=== PATIENT | female | born 1995 | race Two or more races ===

== ENCOUNTER → 2024-10-31 | Outpatient (CLI) | payer BC, SELFPAY ==
--- NOTE | 2024-10-31 09:30 | XR_ITS ---
Examination: Breast ultrasound, unilateral, left complete Date and time of exam: October 31, 2024 0954 hours INDICATIONS: Onset palpable lump left inner upper breast note is beginning a few months ago, family history breast cancer Technique: Real-time galeana scale ultrasonographic imaging performed left breast including all 4 quadrants as well as nipple retroareolar and axillary region. Findings: 10:00 oval mass hyperechoic, likely lipoma, 2 x 1 x 2.3 cm IMPRESSION: BI-RADS Category 3: Probably benign findings One additional 6 month left breast sonogram follow-up is needed to document stability of 10:00 nodule described above
--- NOTE | 2024-10-31 09:36 | XR_ITS ---
Examination: Diagnostic digital mammography, bilateral Computer aided detection 3-D breast Tomosynthesis, bilateral Date and time of exam: October 31, 2024 0939 hours INDICATIONS: Patient states left breast lump 11:00 position note is beginning 2 months ago Technique: Nonmagnified MLO, CC views of the breasts to been obtained, reconstructed from 3-D Tomosynthesis images. R2 computer aided detection program utilized for evaluation of suspicious masses and/or abnormal calcifications. 3-D Tomosynthesis images obtained. Findings: Scattered areas of fibroglandular density Spot compression views at the palpable site do not demonstrate suspicious mass Left breast sonogram report today demonstrates lipomatous mass 10:00 position left breast Impression: BI-RADS Category 2: Benign findings Left breast sonogram report today indicates 10:00 oval mass likely benign lipoma, recommend 6 month follow-up left breast sonography
== END | disposition home or self-care (01) ==
PROVIDERS: PCP Nurse Practitioner Family; Referring Provider Dental Hygienist; Visit Provider Dental Hygienist
DX: R92.323 Mammographic fibroglandular density, bilateral breasts (principal); N63.22 Unspecified lump in the left breast, upper inner quadrant
CPT/HCPCS: 76641; 77062; 77066; G0279